=== PATIENT | female | born 1980 | race Caucasian/White ===

== ENCOUNTER 2016-04-30 18:09 | Emergency (ER) | payer MEDICAID ==
[2016-04-30] MEDS ORDERED: OPTIRAY 350 100 ML VIAL HMH IV ONE (18:10)
[2016-04-30] MEDS ORDERED: ORPHENADRINE 60 MG/2 ML AMP ONE (20:29)
[2016-04-30] MEDS ORDERED: SODIUM CHLORIDE 0.9% 1,000 ML ONE (20:30)
[2016-04-30] MEDS ORDERED: KETOROLAC 30 MG/ML VIAL ONE (20:30)
[2016-04-30] MEDS ORDERED: DILAUDID 1 MG/ML AMP ONE (22:01)
[2016-04-30] MEDS ORDERED: ONDANSETRON 4 MG VIAL ONE (22:01)
== END 2016-04-30 22:29 | disposition home or self-care (01) ==
LOC: ER 18:09
DX: R10.31 Right lower quadrant pain (principal)
CPT/HCPCS: 36415; 74177; 80053; 81001; 83690; 84703; 85025; 96361; 96374; 96375